=== PATIENT | male | born 1995 | race Caucasian/White ===

== ENCOUNTER 2017-05-06 12:14 | Emergency (ER) | payer MEDICAID ==
[2017-05-06 12:29] VITALS: BP 138/84; PULSE 104; RESP 18; TEMP 97.5; O2SAT 94
--- NOTE | 2017-05-06 13:13 | EDPHY ---
H & P Stated Complaint: "I think I have bronchitis" x 4 days;using inhaler "more than I should" Time Seen by Provider: 05/06/17 13:12 HPI/ROS: HPI: This is a 21-year-old male who presents with Chief Complaint: "I think I have bronchitis" x 4 days;using inhaler "more than I should" Location: Chest Quality: Shortness of breath Duration: 4 days Signs and Symptoms: No fever, no chills, no fatigue, + wheezing, no lower extremity edema, no chest pain Timing: Sudden, worsening Severity: Moderate Context: Past medical history of asthma presents with 4 day history nonproductive cough, wheezing and shortness of breath that has not improved with using his albuterol inhaler. His family member was recently diagnosed with influenza but he does not believe that he has this. He is extremely irritable and labile during the interview. He keeps interrupting the questions. He states that on not trying to help him. I advised that I believe he needs a chest x-ray, oral steroids and antitussives due to his history of asthma and symptoms. Patient gets upset with what I just said, picks up his hat and stormed out of the emergency room and despite my request for him to return to the room. Modifying Factors: Albuterol inhaler Comment: ROS: see HPI Constitutional: No fever, no chills, no weight loss Eyes: No blurred vision Respiratory: No shortness of breath, + cough Cardiovascular: No chest pain Gastrointestinal: No nausea, no vomiting, no diarrhea Genitourinary: No dysuria Extremities: No myalgias Neurologic: No weakness, no numbness Skin: No rashes Hematologic: No bruising, no bleeding MEDICAL/SURGICAL/SOCIAL HISTORY: Medical history: Asthma Surgical history: Denies Social history: Unknown CONSTITUTIONAL: Well-appearing, labile, young adult male awake and alert, no obvious distress HEENT: Atraumatic and normocephalic, PERRL, EOMI. Tympanic membranes clear. Oropharynx clear, no exudate and moist pink mucosa. Airway patent. No lymphadenopathy. No meningismus. Cardiovascular: Normal S1/S2, mild tachycardia, regular rhythm, without murmur rub or gallop. PULMONARY/CHEST: Symmetrical and nontender. Mild expiratory wheezing bilaterally. Good air movement. No accessory muscle usage. ABDOMEN: Soft, nondistended, nontender, no rebound, no guarding, no peritoneal signs, no masses or organomegaly. No CVAT. EXTREMITIES: 2/2 pulses, strength 5/5, no deformities, no clubbing, no cyanosis or edema. NEUROLOGICAL: no focal neuro deficits. GCS 15. SKIN: Warm and dry, no erythema. no rash. Good capillary refill. Source: Patient Exam Limitations: No limitations - Personal History Current Tetanus Diphtheria and Acellular Pertussis (TDAP): Yes - Medical/Surgical History Hx Asthma: Yes Other PMH: asthma - Social History Smoking Status: Never smoked Constitutional: Initial Vital Signs Temperature (C) 36.4 C 05/06/17 12:15 Heart Rate 104 H 05/06/17 12:15 Respiratory Rate 18 05/06/17 12:15 Blood Pressure 138/84 H 05/06/17 12:15 O2 Sat (%) 94 05/06/17 12:15 O2 Delivery Mode Room Air Allergies/Adverse Reactions: No Known Allergies Allergy (Unverified 03/08/10 12:44) Home Medications: Medication Instructions Recorded Albuterol Sulfate [Ventolin Hfa] 18 gm IH 05/06/17 Medical Decision Making ED Course/Re-evaluation: Chest x-ray, p.o. prednisone, antitussives ordered Vital signs reviewed upon arrival and mild tachycardia noted likely due to recent albuterol usage. O2 sats 94% on room air. No signs of respiratory distress/airway compromise. I suspect patient has a mild asthma exacerbation. Despite my request for patient to stay, left without treatment. I did advise him that he is free to return to the emergency room at any time for evaluation and further care. Patient's disposition was charted as elopement. This patient was seen under the supervision of my secondary supervising physician. I evaluated care for this patient independently. Differential Diagnosis: Shortness of breath including but not limited to pulmonary infectious process, COPD, asthma, pulmonary embolus and congestive heart failure. Departure - Departure Disposition: Against Medical Advice Clinical Impression: Asthma with acute exacerbation Qualifiers: Asthma severity: mild Asthma persistence: unspecified Qualified Code(s): J45.901 - Unspecified asthma with (acute) exacerbation Condition: Good Instructions: Asthma (ED) Additional Instructions: Please return to the emergency room if you have worsening shortness of breath and difficulty breathing. Referrals: [facility],. [Clinic] - As per Instructions
== END 2017-05-06 13:38 | disposition left against medical advice (07) ==
DX: J45.901 Unspecified asthma with (acute) exacerbation (principal)

== ENCOUNTER 2017-05-08 05:37 | Emergency (ER) | payer MEDICAID ==
[2017-05-08] MEDS ORDERED: IPRATROPIUM/ALBUTEROL 3 ML DEYVIAL ONE (05:44)
--- NOTE | 2017-05-08 05:45 | EDPHY ---
H & P HPI/ROS: HPI CHIEF COMPLAINT: Shortness of breath, wheezing HISTORY OF PRESENT ILLNESS: Patient very pleasant 21-year-old male, presents emergency room shortness of breath, wheezing, states he has been short of breath and wheezing for the past 5 days. He has had a cough but no productive sputum. He states that his chest feels tight. He states he was seen here 5 days ago but left without any medical treatment. He does not smoke. He reports to me he has been using his albuterol continuously. He has a nebulizer machine at home but no medications. Denies fever. Patient denies being intubated for asthma. He does report to me when he was a child he had multiple admissions hospital for asthma. Of note at triage pulse ox was 87%. Past Medical History: Asthma Past Surgical History: Denies surgical history Social History: Denies drugs alcohol tobacco Family History: Noncontributory ROS REVIEW OF SYSTEMS: A comprehensive 10 point review of systems is otherwise negative aside from elements mentioned in the history of present illness. Exam Constitutional the appears nontoxic triage nursing summary reviewed, vital signs reviewed, awake/alert. Vital signs 87% at triage Eyes normal conjunctivae and sclera, EOMI, PERRLA. HENT normal inspection, atraumatic, moist mucus membranes, no epistaxis, neck supple/ no meningismus, no raccoon eyes. Respiratory decreased breath sounds bilaterally, wheezing throughout all lung watson. Cardiovascular rate normal, regular rhythm, no murmur, no edema, distal pulses normal. Gastrointestinal soft, non-tender, no rebound, no guarding, normal bowel sounds, no distension, no pulsatile mass. Genitourinary no CVA tenderness. Musculoskeletal no midline vertebral tenderness, full range of motion, no calf swelling, no tenderness of extremities, no meningismus, good pulses, neurovascularly intact. Skin pink, warm, & dry, no rash, skin atraumatic. Neurologic awake, alert and oriented x 3, AAOx3, moves all 4 extremities equally, motor intact, sensory intact, CN II-XII intact, normal cerebellar, normal vision, normal speech. Psychiatric normal mood/affect. Heme/Lymph/Immune no lymphadenopathy. Differential Diagnosis: Includes but is not limited to in a particular order acute asthma, shortness of breath, reactive airway disease, pneumothorax, pneumonia Medical Decision Making: Plan for this patient chest x-ray, IV establishment IV fluid bolus, IV Solu-Medrol, DuoNeb breathing treatment, basic blood work and re-evaluate. Re-evaluation: EKG interpretation by me on record in [facility] system. Impression time of EKG 5:50 a.m., sinus rhythm rate of 99 left axis deviation present. No acute ischemia. 0623AM: Patient's chest x-ray one view reviewed. Negative for acute cardiopulmonary disease. Patient has received 1 DuoNeb breathing treatment and is feeling better but still has wheezing. Will give a 2nd dose of DuoNeb breathing treatment. Distally patient received IV fluids. IV Solu-Medrol. Will re-evaluate shortly. 0707AM: Re-evaluation at this time. Patient is moving much better air. Does have still very faint wheezing however patient thinks he wants to go home. Will prescribe prednisone 60 mg 5 days burst. Additionally will prescribe albuterol inhaler and nebulizer nebs. Return precautions discussed with the patient. Prescription provided for albuterol inhaler, Albuterol nebs, prednisone 60 mg x5 days, as well as Advair. [address] tested around the emergency room on pulse ox as he is feeling much better. His sat is 95%. Good air movement. No tachycardia and feels well. Return precautions discussed with the patient. Source: Patient - Medical/Surgical History Hx Asthma: Yes Other PMH: asthma - Social History Smoking Status: Never smoked Constitutional: Initial Vital Signs Temperature (C) 36.6 C 05/08/17 05:40 Heart Rate 103 H 05/08/17 05:40 Respiratory Rate 95 H 05/08/17 05:40 O2 Sat (%) 87 L 05/08/17 05:40 O2 Delivery Mode Room Air O2 (L/minute) 2 Allergies/Adverse Reactions: No Known Allergies Allergy (Unverified 05/08/17 05:54) Home Medications: Medication Instructions Recorded Albuterol Sulfate [Ventolin Hfa] 18 gm IH 05/06/17 Albuterol Sulfate [ALBUTEROL 1.25 mg IH BID #20 05/08/17 SULFATE 1.25 MG/3 ML] Albuterol [Proventil Inhaler HFA 1 - 2 puffs IH Q4H #1 mdi 05/08/17 (*)] Fluticasone/Salmeter 250/50Mcg 60 puffs IH BID #1 disk 05/08/17 [Advair 250/50 (*)] predniSONE 60 mg PO DAILY #15 tab 05/08/17 Medical Decision Making - Data Points Laboratory Results: Laboratory Results 05/08/17 06:13 05/08/17 06:13 05/08/17 05/08/17 06:13 06:13 WBC 10.12 10^3/uL H 10^3/uL (3.80-9.50) RBC 6.04 10^6/uL 10^6/uL (4.40-6.38) Hgb 18.3 g/dL H g/dL (13.7-17.5) Hct 50.2 % % (40.0-51.0) MCV 83.1 fL fL (81.5-99.8) MCH 30.3 pg pg (27.9-34.1) MCHC 36.5 g/dL g/dL (32.4-36.7) RDW 12.0 % % (11.5-15.2) Plt Count 222 10^3/uL 10^3/uL (150-400) MPV 10.9 fL fL (8.7-11.7) Neut % (Auto) 35.7 % L % (39.3-74.2) Lymph % (Auto) 45.1 % H % (15.0-45.0) [place] % (Auto) 6.5 % % (4.5-13.0) Eos % (Auto) 11.1 % H % (0.6-7.6) Baso % (Auto) 1.4 % % (0.3-1.7) Nucleat RBC Rel Count 0.0 % % (0.0-0.2) Absolute Neuts (auto) 3.62 10^3/uL 10^3/uL (1.70-6.50) Absolute Lymphs (auto) 4.56 10^3/uL H 10^3/uL (1.00-3.00) Absolute Monos (auto) 0.66 10^3/uL 10^3/uL (0.30-0.80) Absolute Eos (auto) 1.12 10^3/uL H 10^3/uL (0.03-0.40) Absolute Basos (auto) 0.14 10^3/uL H 10^3/uL (0.02-0.10) Absolute Nucleated RBC 0.00 10^3/uL 10^3/uL (0-0.01) Immature Gran % 0.2 % % (0.0-1.1) Immature Gran # 0.02 10^3/uL 10^3/uL (0.00-0.10) Sodium 144 mEq/L mEq/L (135-145) Potassium 3.6 mEq/L mEq/L (3.5-5.2) Chloride 106 mEq/L mEq/L (97-110) Carbon Dioxide 20 mEq/l L mEq/l (22-31) Anion Gap 18 mEq/L H mEq/L (8-16) BUN 15 mg/dL mg/dL (7-23) Creatinine 0.8 mg/dL mg/dL (0.7-1.3) Estimated GFR > 60 Glucose 105 mg/dL H mg/dL (70-100) Calcium 9.9 mg/dL mg/dL (8.5-10.4) Medications Given: Discontinued Medications Albuterol/Ipratropium (Duoneb) 3 ml IH EDNOW ONE Stop: 05/08/17 05:49 Last Admin: 05/08/17 05:48 Dose: 3 ml Albuterol/Ipratropium (Duoneb) 3 ml IH EDNOW ONE Stop: 05/08/17 06:23 Last Admin: 05/08/17 06:25 Dose: 3 ml Sodium Chloride (Ns) 1,000 mls @ 0 mls/hr IV ONCE ONE; Wide Open PRN Reason: Protocol Stop: 05/08/17 05:49 Last Admin: 05/08/17 06:11 Dose: 1,000 mls Methylprednisolone Sodium Succinate (Solu-Medrol) 125 mg IVP EDNOW ONE Stop: 05/08/17 05:49 Last Admin: 05/08/17 06:48 Dose: 125 mg Departure - Departure Disposition: Home, Routine, Self-Care Clinical Impression: Asthma Qualifiers: Asthma severity: moderate Asthma persistence: unspecified Asthma complication type: with acute exacerbation Qualified Code(s): J45.901 - Unspecified asthma with (acute) exacerbation Condition: Good Instructions: Asthma (ED) Additional Instructions: 1. Return to the emergency room if develops any worsening shortness of breath chest pain or trouble breathing. Referrals: Patient,NotPresent [Unknown] - As per Instructions Prescriptions: Albuterol [Proventil Inhaler HFA (*)] 1 - 2 puffs IH Q4H #1 mdi Albuterol Sulfate [ALBUTEROL SULFATE 1.25 MG/3 ML] 1.25 mg IH BID #20 Fluticasone/Salmeter 250/50Mcg [Advair 250/50 (*)] 60 puffs IH BID #1 disk predniSONE 60 mg PO DAILY #15 tab
[2017-05-08] MEDS ORDERED: NS 1,000 ML IV ONE (05:48)
[2017-05-08] MEDS ORDERED: IPRATROPIUM/ALBUTEROL 3 ML DEYVIAL IH ONE ×2 (05:48→06:22)
[2017-05-08] MEDS ORDERED: methylPREDNISolone SOD SUCC 125 MG/2 ML VIAL IVP ONE (05:48)
--- NOTE | 2017-05-08 05:56 | CPEKG ---
Heart Rate: 99 RR Interval: 606 P-R Interval: 128 QRSD Interval: 100 QT Interval: 368 QTC Interval: 473 P Everetts: 81 QRS Everetts: -48 T Wave Everetts: 29 EKG Severity - OTHERWISE NORMAL ECG - EKG Impression: SINUS RHYTHM EKG Impression: LEFT AXIS DEVIATION Electronically Signed By: Mayito Longoria 08-May-2017 07:56:38
[2017-05-08 06:24] LABS: PLATELET COUNT 222 10^3/uL (150-400)
[2017-05-08 07:13] VITALS: BP 112/74; PULSE 99; RESP 16; TEMP 98.4; O2SAT 95
== END 2017-05-08 07:18 | disposition home or self-care (01) ==
PROC: 3E0337Z Introduction of Electrolytic and Water Balance Substance into Peripheral Vein, Percutaneous Approach (ICD-10-PCS; principal; 2017-05-08)
DX: J45.901 Unspecified asthma with (acute) exacerbation (principal); E86.9 Volume depletion, unspecified
CPT/HCPCS: 96374; J2930

== ENCOUNTER 2017-07-02 13:34 | Emergency (ER) | payer MEDICAID ==
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
[2017-07-02 14:39] VITALS: BP 113/74
== END 2017-07-02 14:39 | disposition home or self-care (01) ==
DX: S60.221A Contusion of right hand, initial encounter (principal); J45.909 Unspecified asthma, uncomplicated; Y04.0XXA Assault by unarmed brawl or fight, initial encounter; Y99.8 Other external cause status; Y93.89 Activity, other specified

== ENCOUNTER 2017-10-27 12:48 | Emergency (ER) | payer MEDICAID ==
[2017-10-27 13:53] LABS: PLATELET COUNT 186 10^3/uL (150-400)
[2017-10-27] MEDS ORDERED: KETOROLAC 15 MG/1 ML SDV IVP ONE (14:10)
--- NOTE | 2017-10-27 14:10 | EDPHY ---
H & P Stated Complaint: RLQ pain since last pm;states "I was seizuring" from pain Time Seen by Provider: 10/27/17 13:26 HPI/ROS: CHIEF COMPLAINT: Right lower quadrant pain HISTORY OF PRESENT ILLNESS: 21-year-old male presents with right lower quadrant pain. Yesterday he was walking and felt a pop in his groin. Since then he has had right lower quadrant pain. The pain increases with right hip flexion and with changing position. No pain at rest. No associated symptoms. Yesterday he was sitting on the couch, had onset of tingling in his hands and feet, associated with rapid heart rate and shortness of breath. He was unable to move his hands or feet and felt that he was having a seizure. He is concerned about a seizure disorder. In the past, he has experienced episodes of loss of consciousness, followed by seizure activity. No recent similar episode now. He has not seen a neurologist. Does not drive. REVIEW OF SYSTEMS: complete 10 point ROS negative except at noted in the HPI - Personal History Current Tetanus Diphtheria and Acellular Pertussis (TDAP): Yes - Medical/Surgical History Hx Asthma: Yes Hx Chronic Respiratory Disease: No Hx Diabetes: No Hx Cardiac Disease: No Hx Renal Disease: No Hx Cirrhosis: No Hx Alcoholism: No Hx HIV/AIDS: No Hx Splenectomy or Spleen Trauma: No Other PMH: asthma, - Family History Significant Family History: Seizures (aunt) - Social History Smoking Status: Never smoked Drug Use: None - Physical Exam Exam: General Appearance: Alert, pleasant Eyes: Pupils equal and round, no conjunctival pallor ENT, Mouth: Mucous membranes moist Neck: Normal inspection Respiratory: Lungs are clear to auscultation Cardiovascular: Regular rate and rhythm Gastrointestinal: Abdomen is soft and nontender Genitourinary: Normal inspection, no testicular tenderness or swelling Neurological: A&O, CN II-XII intact, motor/sensory intact, normal gait Skin: Warm and dry Extremities: Normal inspection, tender right groin area without swelling, pain with hip flexion and situps Psychiatric: Mood and affect normal Constitutional: Initial Vital Signs Temperature (C) 36.7 C 10/27/17 12:49 Heart Rate 85 10/27/17 12:49 Respiratory Rate 18 10/27/17 12:49 Blood Pressure 108/66 10/27/17 12:49 O2 Sat (%) 96 10/27/17 12:49 O2 Delivery Mode Room Air Allergies/Adverse Reactions: No Known Allergies Allergy (Verified 10/27/17 12:49) Home Medications: Medication Instructions Recorded Albuterol [Proventil Inhaler HFA 1 - 2 puffs IH Q4H #1 mdi 05/08/17 (*)] Medical Decision Making ED Course/Re-evaluation: This pt presents with RLQ pain, typical of musculoskeletal groin strain. No evidence of appy/ureteral calculus, given normal abd exam, normal UA/CBC. Pt/ mother reassured and warning signs discussed. Toradol 15mg IV given. d/w pt/ mother at length regarding possibility of seizures. Episode yesterday c/w panic attack, though prior episodes more concerning for sz. Will f/u neuro. Understands no driving or other risky behavior until cleared by MD. Differential Diagnosis: includes though not limited to appy, kidney stone, UTI, diverticulitis - Data Points Laboratory Results: Laboratory Results 10/27/17 13:30 10/27/17 13:30 Medications Given: Discontinued Medications Ketorolac Tromethamine (Toradol) 15 mg IVP EDNOW ONE Stop: 10/27/17 14:11 Last Admin: 10/27/17 14:17 Dose: 15 mg Departure - Departure Disposition: Home, Routine, Self-Care Clinical Impression: Abdominal wall strain Qualifiers: Encounter type: initial encounter Qualified Code(s): S39.011A - Strain of muscle, fascia and tendon of abdomen, initial encounter Condition: Good Instructions: Muscle Strain (ED) Additional Instructions: Your blood tests and urine tests today are normal. There is no sign of appendicitis or kidney stone. Ibuprofen 600 mg 3 times daily while the pain persists. Return for worsening symptoms, such as increased abdominal pain, fever, vomiting or any concerns. Referrals: Kaz Viramontes DO [Medical Doctor] - As per Instructions (Call to make an appointment with Dr. Viramontes. He is a neurologist.) [facility],. [Clinic] - As per Instructions (Call to make an appointment for follow-up.)
[2017-10-27 14:42] VITALS: BP 104/64
== END 2017-10-27 14:42 | disposition home or self-care (01) ==
DX: S39.011A Strain of muscle, fascia and tendon of abdomen, initial encounter (principal); J45.909 Unspecified asthma, uncomplicated; X58.XXXA Exposure to other specified factors, initial encounter; Y99.8 Other external cause status; Y93.01 Activity, walking, marching and hiking
CPT/HCPCS: 96374; J1885

== ENCOUNTER 2018-03-27 09:39 | Emergency (ER) | payer OTHER, MEDICAID ==
[2018-03-27 09:45] VITALS: BP 124/78
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
== END 2018-03-27 10:25 | disposition home or self-care (01) ==
LOC: EDUNIT#
DX: S90.31XA Contusion of right foot, initial encounter (principal); J45.909 Unspecified asthma, uncomplicated; V09.3XXA Pedestrian injured in unspecified traffic accident, initial encounter; Y92.9 Unspecified place or not applicable; Y93.9 Activity, unspecified; Y99.9 Unspecified external cause status